=== PATIENT | male | born 1985 | race Caucasian/White ===

== ENCOUNTER 2017-05-30 13:42 | Emergency (ER) | payer SELFPAY ==
--- NOTE | 2017-05-30 13:51 | EDPHY ---
H & P Stated Complaint: Chest Pressure 0900 L side rad to arm, hx panic attacks. Source: Patient Exam Limitations: No limitations - Personal History Current Tetanus/Diphtheria Vaccine: Unsure Current Tetanus Diphtheria and Acellular Pertussis (TDAP): Unsure Tetanus Vaccine Date: 2011 - Medical/Surgical History Hx Asthma: No Hx Chronic Respiratory Disease: No Hx Diabetes: No Hx Cardiac Disease: No Hx Renal Disease: No Hx Cirrhosis: No Hx Alcoholism: No Hx HIV/AIDS: No Hx Splenectomy or Spleen Trauma: No Other PMH: pmh: anxiety. psh: none - Social History Smoking Status: Light smoker Time Seen by Provider: 05/30/17 13:50 HPI/ROS: CHIEF COMPLAINT: Chest pressure, dyspnea, left arm paresthesias HISTORY OF PRESENT ILLNESS: The patient presents the ED after he developed constellation of symptoms at 9 o'clock today which included chest pain, dyspnea and very slight paresthesias in his left shoulder. The patient reports his symptoms have improved spontaneously. He currently is asymptomatic. The patient does have a prior history of similar symptoms which were bilateral in nature and attributed to a possible anxiety attack. The patient denies taking any regular medications. The patient reports a history of [place] in a grandparent but no first-degree relatives or siblings. The patient denies any asymmetric calf pain or swelling. He has no risk factors for PE or DVT. REVIEW OF SYSTEMS: A comprehensive 10 point review of systems is otherwise negative aside from elements mentioned in the history of present illness. (David Esposito) - Physical Exam Exam: General Appearance: Alert, no distress Eyes: Pupils equal and round no pallor or injection ENT, Mouth: Mucous membranes moist Respiratory: There are no retractions, lungs are clear to auscultation Cardiovascular: Regular rate and rhythm Gastrointestinal: Abdomen is soft and nontender, no masses, bowel sounds normal Neurological: A&O, normal motor function, normal sensory exam, normal cranial nerves Skin: Warm and dry, no rashes Musculoskeletal: Neck is supple nontender Extremities: symmetrical, full range of motion (David Esposito) Constitutional: Initial Vital Signs Temperature (C) 36.8 C 05/30/17 13:44 Heart Rate 98 05/30/17 13:44 Respiratory Rate 16 05/30/17 13:44 Blood Pressure 147/104 H 05/30/17 13:44 O2 Sat (%) 97 05/30/17 13:44 O2 Delivery Mode Room Air Allergies/Adverse Reactions: Sulfa (Sulfonamide Antibiotics) Allergy (Verified 03/29/16 22:51) Home Medications: Medication Instructions Recorded NK [No Known Home Meds] 05/30/17 Medical Decision Making - Diagnostics EKG Interpretation: EKG: Complete interpretation has been separately recorded in the [facility] [facility] archive. Summary impression: Sinus rhythm, rate 90 (David Esposito) Imaging Results: Imaging Impressions Chest X-Ray 05/30/17 14:08 Impression: Normal. ED Course/Re-evaluation: The patient presents to the ED after a episode of atypical chest pain and mild dyspnea which occurred at 9 o'clock this morning. The patient has no risk factors for coronary artery disease nor does he have risk factors for pulmonary embolism. Upon arrival in the emergency department the patient was noted to have a normal nonischemic EKG without evidence of arrhythmia. The patient's chest x-ray demonstrates no evidence of acute disease. Pending at this point time is a troponin and D-dimer. If these tests are negative I do feel the patient can be discharged home with instructions to follow up as an outpatient with Cardiology. The patient will be turned over to Dr. Underwood at shift change pending these 2 outstanding studies. Should his D- dimer be positive a CT pulmonary angiogram will be obtained. Should the patient 's troponin be positive consultation will be made with Cardiology. (David Esposito) Re-evaluation at 4:20 p.m.. The D-dimer and troponin are normal. Dr. Esposito and I had discussed sending the patient home if the troponin and D-dimer are negative. I discussed this with the patient. He expresses understanding and agreement He currently has no symptoms. He says that he thinks now that this was likely an anxiety attack. We discussed criteria for return and importance of follow- up. We discussed following up with Cardiology for recurring symptoms for further evaluation. (Ted Underwood) Differential Diagnosis: Differential diagnosis considered includes acute coronary syndrome, pulmonary embolism, pneumothorax, esophageal spasm, costochondritis (David Esposito) - Data Points Laboratory Results: Laboratory Results 05/30/17 14:25 05/30/17 14:25 05/30/17 05/30/17 05/30/17 14:25 14:25 14:25 WBC 9.63 10^3/uL H 10^3/uL (3.80-9.50) RBC 4.94 10^6/uL 10^6/uL (4.40-6.38) Hgb 16.7 g/dL g/dL (13.7-17.5) Hct 47.8 % % (40.0-51.0) MCV 96.8 fL fL (81.5-99.8) MCH 33.8 pg pg (27.9-34.1) MCHC 34.9 g/dL g/dL (32.4-36.7) RDW 12.5 % % (11.5-15.2) Plt Count 168 10^3/uL 10^3/uL (150-400) MPV 10.5 fL fL (8.7-11.7) Neut % (Auto) 69.2 % % (39.3-74.2) Lymph % (Auto) 20.4 % % (15.0-45.0) [place] % (Auto) 7.9 % % (4.5-13.0) Eos % (Auto) 2.0 % % (0.6-7.6) Baso % (Auto) 0.1 % L % (0.3-1.7) Nucleat RBC Rel Count 0.0 % % (0.0-0.2) Absolute Neuts (auto) 6.67 10^3/uL H 10^3/uL (1.70-6.50) Absolute Lymphs (auto) 1.96 10^3/uL 10^3/uL (1.00-3.00) Absolute Monos (auto) 0.76 10^3/uL 10^3/uL (0.30-0.80) Absolute Eos (auto) 0.19 10^3/uL 10^3/uL (0.03-0.40) Absolute Basos (auto) 0.01 10^3/uL L 10^3/uL (0.02-0.10) Absolute Nucleated RBC 0.00 10^3/uL 10^3/uL (0-0.01) Immature Gran % 0.4 % % (0.0-1.1) Immature Gran # 0.04 10^3/uL 10^3/uL (0.00-0.10) D-Dimer < 0.27 ug/mLFEU ug/mLFEU (0.00-0.50) Sodium 141 mEq/L mEq/L (134-144) Potassium 3.9 mEq/L mEq/L (3.5-5.2) Chloride 104 mEq/L mEq/L (97-110) Carbon Dioxide 22 mEq/l mEq/l (22-31) Anion Gap 15 mEq/L mEq/L (8-16) BUN 5 mg/dL L mg/dL (7-23) Creatinine 0.7 mg/dL mg/dL (0.7-1.3) Estimated GFR > 60 Glucose 91 mg/dL mg/dL (70-100) Calcium 9.9 mg/dL mg/dL (8.5-10.4) Troponin I < 0.012 ng/mL ng/mL (0.000-0.034) Departure - Departure Disposition: Home, Routine, Self-Care Clinical Impression: Chest pain Condition: Good Instructions: Chest Pain (ED) Additional Instructions: 1. Based upon the testing done in the Emergency Department today we see no evidence of a heart attack. 2. We are unable to fully exclude coronary artery disease based upon the testing available in the Emergency Department. 3. For this reason, we would like you to be seen by cardiology for consideration of additional testing within the next 3 days. 4. Please contact the [facility] you have been referred to schedule this appointment as soon as possible. Their offices are typically open from 8:30am- 5pm M-F. 5. Please return to the Emergency Department immediately for any recurrent chest pain, difficulty breathing or other concerns. Referrals: Martín Enrique MD [Medical Doctor] - As per Instructions
--- NOTE | 2017-05-30 14:10 | CPEKG ---
Heart Rate: 90 RR Interval: 667 P-R Interval: 124 QRSD Interval: 80 QT Interval: 348 QTC Interval: 426 P [place]: 69 QRS [place]: 72 T Wave [place]: 46 EKG Severity - NORMAL ECG - EKG Impression: SINUS RHYTHM Electronically Signed By: David Esposito 30-May-2017 14:40:51
[2017-05-30 14:12] VITALS: TEMP 98.1
[2017-05-30 14:50] LABS: PLATELET COUNT 168 10^3/uL (150-400)
[2017-05-30 16:20] VITALS: BP 143/92; PULSE 98; RESP 18; O2SAT 96
== END 2017-05-30 16:46 | disposition home or self-care (01) ==
DX: R07.9 Chest pain, unspecified (principal); F17.200 Nicotine dependence, unspecified, uncomplicated